=== PATIENT | female | born 1995 | race Caucasian/White ===

== ENCOUNTER 2022-07-06 14:37 | Outpatient (CLI) | payer BC, SELFPAY ==
[2022-07-06 15:58] LABS: Hematocrit 31.3 % (37.0-47.0); Mean Corpuscular HGB Conc 31.9 g/dl (32-36); Mean Corpuscular Hemoglobin 25.7 pg (26-34); Mean Corpuscular Volume 80.5 fl (80-100); Mean Platelet Volume 12.5 fl (7.4-10.4); Platelet Count Result 168 k/mm3 (150-375); Red Blood Count 3.89 M/mm3 (4.2-5.4); Red Cell Distribution Width 13.9 % (11.5-14.5); White Blood Count 11.5 K/mm3 (4.5-10.0)
[2022-07-07 16:22] LABS: Rapid Plasma Reagin Non-Reactive (NonReactive)
== END 2022-07-06 14:38 | disposition home or self-care (01) ==
PROVIDERS: Visit Provider Obstetrics & Gynecology
DX: Z34.93 Encounter for supervision of normal pregnancy, unspecified, third trimester (principal); Z3A.00 Weeks of gestation of pregnancy not specified
CPT/HCPCS: 36415; 85027; 86592; 86850; 86900; 86901

== ENCOUNTER 2022-07-07 09:58 | Inpatient (IN) | payer BC, SELFPAY ==
[2022-07-07] VITALS (55 sets, daily range): BP systolic 75–135; BP diastolic 58–98; PULSE 49–101; RESP 14–16; TEMP 36.4–37; O2SAT 97–100; BMI 36.0
[2022-07-07] MEDS: LACTATED RINGERS 1,000 ML 125 ML IV CONT ×2 (11:17→12:00)
--- NOTE | 2022-07-07 11:28 | LDADM ---
This patient, Sadie Elena, was admitted to Labor/Delivery/Recovery 119 on 07/07/22 at 09:58. Plans for section, pain management and were discussed with patient. Patient/family oriented to hospital policies and general routines including ID bracelet, bed and alarms, visiting hours, pain management, procedures, bathroom and other care routines, personal items, smoking policy, room service/diet and guest tray routines, security routines, and visiting hours. Patient/Family are encouraged to report perceived risks to care and to ask questions if they do not understand what they are told or what they should do. See OBIX for further documentation.
--- NOTE | 2022-07-07 11:49 | P.PNAN_ITS ---
Anes - Initial Pre Proc Eval Procedure: Operation Date: 07/07/22 12:00 Proposed Procedures p Section for Twins - Nichole Harvey MD Date/Time: 07/07/22 11:49 Surgeon: Nichole Harvey MD Pre Op Diagnosis: c/s twins Patient Data Age: 27 Gender: F Height: 1.7 m Weight: 104.4 kg Last Vital Signs Pulse 101 H 07/07/22 10:22 BP 135/75 07/07/22 10:22 O2 Del Method Room Air 07/07/22 11:20 Allergies Allergy/AdvReac Type Severity Reaction Status Date / Time cefaclor Allergy Unknown Hives Verified 06/28/22 15:32 Home Medications Medication Instructions Recorded Confirmed Type Aspirin For Children 162 mg PO DAILY 06/28/22 07/07/22 History escitalopram oxalate 10 mg tablet 10 mg PO DAILY 06/28/22 06/28/22 History (Lexapro) montelukast 10 mg tablet 10 mg PO DAILY 06/28/22 06/28/22 History (Singulair) Laboratory Tests 07/07/22 11:36 HIV 1&2 Ab/P24 Ag 4thGn Pending Patient hx anesthesia problems: none Family hx anesthesia problems: none Results Review: All pre-operative results and documents have been reviewed as part of the pre- operative evaluation. [facility] Family History Family History Father Diabetes mellitus Social History Social History Smoking status: Never smoker Substance use: never Lack of Transportation: No Lack of Food: Never True Current Housing: I Have Housing Concerned About Future Housing: No Difficulty Paying Gas/Electric Bills: No Difficulty Paying for Meds: No Currently Unemployed: No Education: Bachelor's Degree Difficulty w/ Childcare or Family Care: No Spiritual care concerns: No Anes - Eval Final PreProcedure Day of Procedure 07/07/22 11:49 Heart: regular rate and rhythm Lungs: clear to auscultation Airway: Mallampati scale class 1 Neurological: alert and oriented Last oral intake: >/= 8 hours ASA classification: II Emergent: no Anesthetic plan: proceed Anesthesia type and monitoring: regional spinal and standard monitoring Results Review: All pre-operative results and documents have been reviewed as part of the pre- operative evaluation. Informed Consent: The patient's anesthetic plan and its attendant risks and benefits were discussed with the patient/family/POA. Questions were solicited and answers provided to the satisfaction of the patient/family/POA.
--- NOTE | 2022-07-07 11:58 | PM.IMHP ---
H&P: HPI History of Present Illness Date/Time: 07/07/22 11:58 Chief Complaint: primary CS twins Narrative: Sadie is a 27yo at 37.3 here for primary CS for mono/di twins. has otherwise been complicated only by anxiety/depression on lexapro, stable. Babies are vertex/vertex and concordantly grown. GBS pos. Review of Systems Review of Systems: All systems reviewed & are unremarkable except as noted in HPI and below PMFSH Family History Family History Father Diabetes mellitus Social History Social History Smoking status: Never smoker Substance use: never Lack of Transportation: No Lack of Food: Never True Current Housing: I Have Housing Concerned About Future Housing: No Difficulty Paying Gas/Electric Bills: No Difficulty Paying for Meds: No Currently Unemployed: No Education: Bachelor's Degree Difficulty w/ Childcare or Family Care: No Spiritual care concerns: No Meds Home Medications and Allergies Home Medications Medication Instructions Recorded Confirmed Type Aspirin For Children 162 mg PO DAILY 06/28/22 07/07/22 History escitalopram oxalate 10 mg tablet 10 mg PO DAILY 06/28/22 06/28/22 History (Lexapro) montelukast 10 mg tablet 10 mg PO DAILY 06/28/22 06/28/22 History (Singulair) Allergies Allergy/AdvReac Type Severity Reaction Status Date / Time cefaclor Allergy Unknown Hives Verified 06/28/22 15:32 Vital Signs Vital Signs - 24 hr 07/07/22 10:22 07/07/22 11:20 Pulse Rate 101 H Blood Pressure 135/75 Oxygen Delivery Room Air Exam Const: General: no acute distress Resp: Effort & Inspection: normal respiratory effort Auscultation: clear to auscultation bilaterally Cardio: Rate: regular rate Rhythm: regular rhythm GI: GI Palp: Yes Soft to palpation Extrem: General: normal to inspection Assessment and Plan Assessment and plan (1) Monochorionic diamniotic twin gestation: Code(s): O30.039 - Twin , monochorionic/diamniotic, unspecified trimester Status: Acute Plan consented for CS for twins (pt prefers not to labor due to risks of uncertain mode of delivery of second twin). RBA discussed, questions answered. Will proceed GBS pos.
--- NOTE | 2022-07-07 12:02 | WPDHPUPDATE1 ---
History and Physical Update Update Date/Time: 07/07/22 12:02 History and Physical has been reviewed, including an updated exam of the patient. There are NO changes in the patient's condition. Risks, benefits, and alternatives have been discussed and questions answered. Patient agrees to proceed with procedure.
[2022-07-07] MEDS: CLINDAMYCIN 900 MG/D5W 50 ML 900 MG/50 ML PIGGYBACK 50 MG IVPB (12:13)
[2022-07-07] MEDS: GENTAMICIN SULFATE INJ 390 MG in DEXTROSE 5% 100 ML 100 MG IVPB (12:25)
[2022-07-07 12:31] LABS: HIV 1/2 Ab P24 Ag Result Negative (Negative)
[2022-07-07] MEDS: KETOROLAC 30 MG/ML VIAL (*BKC) IV PUSH (12:34)
--- NOTE | 2022-07-07 13:05 | PM.OBPRVD ---
OB - Delivery Note Procedure Delivery date: 07/07/22 Procedure: Procedures Operation Date: 07/07/22 12:00 <No data on this case meets the specified criteria> primary low transverse section Events: Multiple Gestation Route of delivery: Specimen: Yes (placenta) Quantitative Blood Loss (ml): 375 Anesthesia type: Spinal Disposition: Floor Complications: none Narrative: The patient was taken to the OR and received spinal anesthesia. She was placed in dorsal supine position with left lateral tilt. SCDs and guadarrama were placed. She was prepped and draped in the normal sterile fashion. A Pfannensteil skin incision was made and carried through to the underlying layer of fascia. The fascia was incised in the midline and then extended laterally using Gill scissors. The muscles were in the midline and the peritoneum was entered bluntly. The peritoneal incision was extended inferiorly and superiorly with care to avoid the bladder. The bladder blade was then inserted, the vesicouterine peritoneum was grasped, incised with Metzenbaum scissors, and a bladder flap created. The bladder blade was reinserted. A low transverse uterine incision was made with a scalpel and extended bluntly. AROM of baby A was performed and fluid was noted to be clear. The head was delivered, followed by the remainder of the baby. The baby's oropharynx was suctioned. After 30 seconds, the cord was clamped and cut and the infant was handed off. AROM of baby B was performed and fluid was clear. The baby was delivered in vertex presentation and after delayed cord clamping, the cord was cut and the baby handed off. Cord blood was obtained and the placenta was then removed manually. The uterus was exteriorized. A moist lap sponge was used to curette the endometrium. The uterine incision was then closed with one layer of 0-Vicryl in a running, locking fashion. Good hemostasis was noted. The posterior cul de sac was irrigated with normal saline and cleared of all clot and debris. The uterus was returned to the abdomen. Both lateral gutters were then irrigated. The rectus muscles were inspected and found to be hemostatic. The fascia was reapproximated using 0-Vicryl in running fashion. The subcutaneous tissue was irrigated with normal saline and made hemostatic with Bovie electrocautery. The skin was then closed with absorbable joe. Steri strips and a bandage were applied. The uterus was evacuated. The patient tolerated the procedure very well. All counts were correct. She was taken to the recovery room in good condition. Baby Date of : 07/07/22 Time of : 12:31 Weeks of gestation at delivery: 37 Infant gender: Male Weight (pounds): 6 Weight (ounces): 4 presentation: vertex Placenta delivery description: Manual Removal Cord Vessel Description: 3 Vessels and Delayed Cord Clamping score one minute: 7 score five minutes: 8 Twins 2: Date of : 07/07/22 Time of : 12:32 Weeks of gestation at delivery: 37 gender: Male Weight (pounds): 6 Weight (ounces): 11 presentation: vertex Placental delivery description: Manual Removal Cord Vessel Description: 3 Vessels and Delayed Cord Clamping score one minute: 8 score five minutes: 8
[2022-07-07] MEDS: fentaNYL CITRATE INJ (*CRX) 100 MCG/2 ML VIAL 25 MCG IV PUSH ×2 (15:28→15:43)
[2022-07-07] MEDS: diphenhydrAMINE HCl INJ 50 MG/ML VIAL 25 MG IV PUSH ×2 (15:33→19:32)
--- NOTE | 2022-07-07 15:58 | PC.NURSE ---
Patient transferred to post room #282 via stretcher. Support person present. Oriented to unit, room, information board, rooming in, admission packet and security measures. Patient verbalizes understanding.
[2022-07-07] MEDS: DOCUSATE SODIUM 100 MG CAPSULE PO (19:32)
[2022-07-07] MEDS: POLYSACCHARIDE IRON COMPLEX 150 MG CAPSULE PO (19:32)
[2022-07-08] MEDS: diphenhydrAMINE HCl INJ 50 MG/ML VIAL 25 MG IV PUSH ×2 (00:32→04:22)
[2022-07-08 04:00] VITALS: BP 112/71; PULSE 75; RESP 16; TEMP 36.8
[2022-07-08] MEDS: HYDROcodone/acetaminophen (*CRX) 5-325 MG TABLET 1 TAB PO ×4 (04:05→20:12)
[2022-07-08] MEDS: IBUPROFEN 600 MG TABLET PO ×3 (04:05→20:12)
[2022-07-08 05:33] LABS: Basophils Absolute Auto 0.1 K/mm3 (0.0-0.1); Basophils Percent Auto 0.5 % (0.2-1.2); Eosinophils Absolute Auto 0.2 K/mm3 (0-0.3); Eosinophils Percent Auto 1.3 % (0-4.4); Hematocrit 29.4 % (37.0-47.0); Hemoglobin 9.3 g/dL (12.0-15.0); Immature Granulocyte Absolute 0.09 K/mm3 (0.00-0.031); Immature Granulocyte Percent A 0.6 % (0-0.5); Immature Platelet Fraction Pct 18.1 % (0.9-11.2); Lymphocytes Absolute Auto 1.84 K/mm3 (0.9-3.2); Lymphocytes Percent Auto 11.8 % (18.3-44.2); Mean Corpuscular HGB Conc 31.6 g/dl (32-36); Mean Corpuscular Hemoglobin 24.9 pg (26-34); Mean Corpuscular Volume 78.8 fl (80-100); Mean Platelet Volume 13.4 fl (7.4-10.4); Monocytes Absolute Auto 1.3 K/mm3 (0.1-0.6); Neutrophils Absolute Auto 12.1 K/mm3 (1.3-6.7); Neutrophils Percent Auto 77.8 % (45.5-73.1); Platelet Count Result 159 k/mm3 (150-375); Red Blood Count 3.73 M/mm3 (4.2-5.4); Red Cell Distribution Width 13.6 % (11.5-14.5); White Blood Count 15.6 K/mm3 (4.5-10.0)
[2022-07-08 07:50] VITALS: BP 123/66; PULSE 99; RESP 18; TEMP 36.6; O2SAT 99
[2022-07-08] MEDS: MULTIVIT/MIN/PREN/FOL AC/IRON TABLET 1 TAB PO (07:55)
[2022-07-08] MEDS: POLYSACCHARIDE IRON COMPLEX 150 MG CAPSULE PO ×2 (07:55→20:12)
[2022-07-08] MEDS: ESCITALOPRAM OXALATE 10 MG TABLET PO (07:56)
[2022-07-08] MEDS: MONTELUKAST SODIUM 10 MG TABLET PO (07:57)
--- NOTE | 2022-07-08 08:12 | PM.OBPNVD ---
OB - PN: Subj Subjective Date/time seen: 07/08/22 08:12 Patient comments: no complaints, pain well controlled, tolerating diet and flatus present [place] baby status: other (Both transferred but doing well.) OB - PN: Obj Data Labs 07/08/22 04:09 Labs: Laboratory Results - last 24 hr 07/07/22 07/08/22 11:36 04:09 WBC 15.6 H RBC 3.73 L Hgb 9.3 L Hct 29.4 L MCV 78.8 L MCH 24.9 L MCHC 31.6 L RDW 13.6 Plt Count 159 MPV 13.4 H Immature Gran % (Auto) 0.6 H Neut % (Auto) 77.8 H Lymph % (Auto) 11.8 L [place] % (Auto) 8.0 Eos % (Auto) 1.3 Baso % (Auto) 0.5 Lymph # (Auto) 1.84 [place] # (Auto) 1.3 H Eos # (Auto) 0.2 Baso # (Auto) 0.1 Abs Immat Gran (auto) 0.09 H Absolute Neuts (auto) 12.1 H Absolute Nucleated RBC 0.0 Nucleated RBC % 0.0 % Immature Plt Fraction 18.1 H HIV 1&2 Ab/P24 Ag 4thGn Negative OB - PN A/P Plan day: 1 Plan: routine care Time Spent With Patient Time: Total time spent is greater than 50% in coordination of care (as documented) at patient's floor/unit and/or counseling patient: Time with patient: less than 15 minutes Review of Systems Review of Systems: All systems reviewed & are unremarkable except as noted in HPI and below Exam Narrative: Fundus firm. Vaginal flow controlled. Incision dry and intact. Negative homans. No redness, warmth, or pain of lower ext. Const: General: comfortable Chest: Breast/axilla inspection: normal inspection of the breasts Resp: Effort & Inspection: normal respiratory effort Auscultation: clear to auscultation bilaterally Cardio: Rate: regular rate GI: GI Palp: Yes Soft to palpation Psych: Appearance: grossly normal Affect: normal affect Attitude: cooperative Thought content: Yes Normal thought content present Judgement: Good judgement present (Psych)
--- NOTE | 2022-07-08 08:40 | WPDANLDPN2 ---
Anes-Prog Note L&D Date/Time: 07/08/22 08:40 Comfortable throughout: section Neuraxial method: spinal Epidural/Spinal procedure site: clean & non-tender Neuro status: Neuro function grossly intact. Cardiovascular status: normal Respiratory status: normal Airway patency: baseline Mental status: baseline Post-Op hydration status: normal Vital Signs: Last Vital Signs Temp 98.2 F 07/08/22 04:00 Pulse 75 07/08/22 04:00 Resp 16 07/08/22 04:00 BP 112/71 07/08/22 04:00 Pulse Ox 100 07/07/22 16:15 O2 Del Method Room Air 07/07/22 13:40 Pain score (VAS): 2 I/O: Intake & Output 07/07/22 07/08/22 07/08/22 23:59 07:59 15:59 Intake Total 500 1000 Output Total 440 1700 Balance 60 -700 Post-procedural complaints: pruritis severe, treatment refractory Patient feedback: Patient satisfied with anesthetic care.
--- NOTE | 2022-07-08 08:41 | WPDANLDNPN2 ---
Anes-Prog Note L&D-Neuraxial Date/Time: 07/08/22 08:41 Neuraxial medications: intrathecal PF morphine Opiod-related complaints: pruritis severe, treatment refractory Patient feedback: Patient satisfied with post-operative pain management.
[2022-07-08] MEDS: DOCUSATE SODIUM 100 MG CAPSULE PO ×2 (08:55→20:12)
[2022-07-08] MEDS: LORATADINE 10 MG TABLET PO (11:04)
[2022-07-08 11:20] VITALS: BP 121/69; PULSE 100; RESP 20; TEMP 36.4; O2SAT 97
--- NOTE | 2022-07-08 16:31 | PC.NURSE ---
Pt. out on pass to visit babies at [facility] accompanied by FOB
[2022-07-08 20:12] VITALS: BP 123/54; PULSE 73; RESP 16; TEMP 36.5
[2022-07-09] MEDS: IBUPROFEN 600 MG TABLET PO (03:20)
[2022-07-09] MEDS: HYDROcodone/acetaminophen (*CRX) 5-325 MG TABLET 1 TAB PO ×2 (03:20→08:23)
[2022-07-09 07:11] VITALS: BP 121/72; PULSE 67; RESP 18; TEMP 36.5; O2SAT 98
[2022-07-09] MEDS: POLYSACCHARIDE IRON COMPLEX 150 MG CAPSULE PO (08:20)
[2022-07-09] MEDS: MULTIVIT/MIN/PREN/FOL AC/IRON TABLET 1 TAB PO (08:20)
[2022-07-09] MEDS: MONTELUKAST SODIUM 10 MG TABLET PO (08:20)
[2022-07-09] MEDS: DOCUSATE SODIUM 100 MG CAPSULE PO (08:20)
[2022-07-09] MEDS: ESCITALOPRAM OXALATE 10 MG TABLET PO (08:20)
[2022-07-09] MEDS: LORATADINE 10 MG TABLET PO (08:22)
--- NOTE | 2022-07-09 08:37 | PM.OBPNVD ---
OB - PN: Subj Subjective Date/time seen: 07/09/22 08:37 Patient comments: no complaints and pain well controlled baby status: NICU [place] feeding status: pumping and bottle feeding Narrative: babies doing great at [facility], wants DC today. OB - PN: Obj Data Labs 07/08/22 04:09 OB - PN A/P Plan day: 2 Plan: routine care and discharge home Comments: DC instructions discussed FU 1 week Time Spent With Patient Time: Total time spent is greater than 50% in coordination of care (as documented) at patient's floor/unit and/or counseling patient: Exam Narrative: NAD abdomen soft, appropriately tender, incision CDI Extremities nontender with 1+ edema
--- NOTE | 2022-07-09 08:41 | P.DS_ITS ---
DS: Admitting Diagnosis Discharge Date 07/09/22 Admitting Diagnosis mono/di twins 37.3 DS: Discharge Diagnosis Discharge Diagnosis (1) deliv NOS-unsp: Status: Acute (2) Monochorionic diamniotic twin gestation: Code(s): O30.039 - Twin , monochorionic/diamniotic, unspecified trimester Status: Acute OB - DS: Summary Hospital Course Hospital Course: Sadie was admitted for delivery of twins at term. Her delivery and course was uncomplicated. She was discharged on post op day 2 to be with the babies, who were transferred to [facility] for minor respiratory issues. OB Procedures : NST and Ultrasound OB Procedures Intrapartum: OB Procedures: : None Peripartum Data Infant Delivery Method: Section Procedures: Procedures Operation Date: 07/07/22 12:00 Actual Procedure Side Surgeon p Section for Twins Not Applicable Nichole Harvey MD complications: none Status at Discharge Functional status at discharge: independent ambulation Time Spent with Patient Time attestation: Total time spent providing and/or coordinating discharge services: Exam Narrative: NAD abdomen soft, appropriately tender, incision CDI Discharge Plan Discharge Attending physician on discharge: Nichole Harvey Discharging Clinician: Nichole Harvey Anticipated Discharge Date/Time: 07/09/22 08:39 Patient Disposition: Home, Self-Care Activity: may drive after 2 weeks and pelvic rest Diet: regular Patient Instructions: Antibiotic Form Stand Alone Forms: General Discharge Information Follow-up/Referrals: Nichole Harvey MD [Physician] - 1 Week Discharge Medications: New hydrocodone-acetaminophen 5-325 mg Tablet 1 tablet PO Q3H Qty: 28 0RF ibuprofen 600 mg Tablet 600 mg PO Q6H PRN (Reason: Cramping) Qty: 20 0RF docusate sodium 100 mg Capsule 100 mg PO BID PRN (Reason: constipation) Qty: 60 0RF Continued Aspirin For Children 162 mg PO DAILY montelukast [Singulair] 10 mg Tablet 10 mg PO DAILY escitalopram oxalate [Lexapro] 10 mg Tablet 10 mg PO DAILY Date of admission: 07/07/22 09:58 Primary Care Provider: PHYSICIAN,[employer] Admitting Provider: Nichole Harvey Attending physician on admission: Nichole Harvey Condition: Stable
--- NOTE | 2022-07-09 09:37 | PC.NURSE ---
Patient instructed on viewing the discharge video Mother & Baby Care, The First Two Weeks . Patient was given the opportunity and encouraged to ask questions. Patient verbalized understanding of information shared and has been given the mother/baby guide for home reference.
[2022-07-10 09:09] VITALS: BP 140/72; PULSE 72; RESP 20; TEMP 36.8; O2SAT 100
== END 2022-07-09 10:50 | disposition home or self-care (01) | DRG 788 ==
LOC: ANHLDR 10:01 → ANHOB2 15:59
PROVIDERS: Admitting Provider Obstetrics & Gynecology; Visit Provider Obstetrics & Gynecology
PROC: 10D00Z1 Extraction of Products of Conception, Low, Open Approach (ICD-10-PCS; CPT 59514; principal; 2022-07-07 12:00)
DX: O30.033 Twin pregnancy, monochorionic/diamniotic, third trimester (principal); O99.824 Streptococcus B carrier state complicating childbirth; O99.344 Other mental disorders complicating childbirth; F41.8 Other specified anxiety disorders; F32.A Depression, unspecified; Z37.2 Twins, both liveborn; Z3A.37 37 weeks gestation of pregnancy
CPT/HCPCS: 36415; 85025; 85055; 86703; 88307; A9270; G0432; J0131; J1200; J1580; J1885; J2274; J2370; J2405; J2590; J3010; J7120